=== PATIENT | female | born 1930 | race Caucasian/White ===

== ENCOUNTER → 2016-07-23 | Outpatient (CLI) | payer OTHER ==
[2016-07-23 12:49] LABS: BLOOD UREA NITROGEN 23 mg/dl (7-18); BUN/CREATININE RATIO 23.4 (10-20); CALCIUM 9.1 mg/dl (8.5-10.1); CARBON DIOXIDE 30 mmol/L (21-32); CHLORIDE 105 mmol/L (98-107); GLUCOSE 103 mg/dl (70-99); POTASSIUM 4.4 mmol/L (3.5-5.1); SODIUM 141 mmol/L (136-145)
[2016-07-23 13:02] LABS: ESTIMATED AVERAGE GLUCOSE 117 mg/dl; HA1C FLAG Normal (Normal)
== END | disposition home or self-care (01) ==
LOC: C.LABPVFM 08:45
PROVIDERS: ATTEND Nurse Practitioner
DX: R73.01 Impaired fasting glucose (principal); E03.9 Hypothyroidism, unspecified; I25.10 Atherosclerotic heart disease of native coronary artery without angina pectoris

== ENCOUNTER → 2017-01-22 | Outpatient (CLI) | payer OTHER ==
[2017-01-22 13:50] LABS: BLOOD UREA NITROGEN 20 mg/dl (7-18); BUN/CREATININE RATIO 24.7 (10-20); CALCIUM 9.4 mg/dl (8.5-10.1); CARBON DIOXIDE 28 mmol/L (21-32); CHLORIDE 106 mmol/L (98-107); CREATININE 0.79 mg/dl (0.60-1.20); GLUCOSE 100 mg/dl (70-99); POTASSIUM 4.1 mmol/L (3.5-5.1); SODIUM 139 mmol/L (136-145)
== END | disposition home or self-care (01) ==
LOC: C.LABPVFM 10:12
PROVIDERS: ATTEND Nurse Practitioner
DX: I10 Essential (primary) hypertension (principal)

== ENCOUNTER → 2017-09-05 | Outpatient (CLI) | payer OTHER ==
[2017-09-05 14:19] LABS: BLOOD UREA NITROGEN 24 mg/dl (7-18); CALCIUM 8.9 mg/dl (8.5-10.1); CARBON DIOXIDE 29 mmol/L (21-32); CREATININE 1.14 mg/dl (0.60-1.20); GLUCOSE 105 mg/dl (70-99); POTASSIUM 4.2 mmol/L (3.5-5.1); SODIUM 140 mmol/L (136-145)
== END | disposition home or self-care (01) ==
LOC: C.LABPVFM 09:13
PROVIDERS: ATTEND Nurse Practitioner
DX: I10 Essential (primary) hypertension (principal); E03.9 Hypothyroidism, unspecified

== ENCOUNTER 2022-02-27 18:54 | Observation (INO) ==
[2022-02-27] MEDS ORDERED: SODIUM CHLORIDE 0.9% 1000ML 1,000 ML IV STA (19:59)
--- NOTE | 2022-02-27 19:59 | Emergency Department Note ---
Impression & Plan Syncope and collapse ED Provider Note INFORMANT: Patient and family ED PROVIDER(S): Vik Jerry MD CHIEF COMPLAINT: Syncope PLAN: Disposition: Admitted Condition: Good Outpatient prescription management: none Referral: None MEDICAL DECISION MAKING: Patient presented because of a concerning syncopal episode. No prodrome. Patient denies any prior history of this. States that she was in good health recently. Work-up was initiated. Patient was gently hydrated. Patient had a mild leukocytosis on CBC. No infectious issues were identified on physical examination. Chemistry panel was unremarkable. ECG showed a sinus bradycardia. Head CT did not reveal any acute findings. Urinalysis pending at time of dictation. Consultation was made with Dr. Croft of internal medicine. Patient was evaluated in the ER and admitted for further management Triage Nursing notes reviewed and agree them. Vital Signs: reviewed and remarkable for no significant abnormalities Differential diagnosis: Vasovagal event, dehydration, infection, hypoglycemia, electrolyte abnormalities, cardiac sources, intracerebral event, pulmonary embolism, seizure, toxicologic, neurologic, as well as other pathologies. Diagnostics interpreted by me: ECG: Twelve-lead ECG reveals sinus bradycardia [address] elevation or depression. No PACs or PVCs. Normal axis Cardiac Monitoring: Cardiac monitoring ordered by me: The patient was placed on continuous cardiac monitoring and observed. It revealed a normal sinus rhythm at 60 beats per minute without ectopy or evidence of dysrhythmia. Imaging studies: Head CT: A noncontrast CT scan of the head was performed and was negative for tumor, fracture, intracranial hemorrhage, or other acute pathology. HPI: The patient is a 89 year old female who presents to the Emergency Room with complaints of syncope. This started this afternoon and is described as sudden. Patient that she woke up on the floor. No prodrome.. The patient also notes the following associated symptoms, minor scratch above the bridge of her nose. Patient states has been in good health recently. sHe has been eating well.. The patient has been given no medication for relieving factors. Current pain is rated as 0/10. Patient denies any injury. Pt denies LOC, headache, fevers, chills, diaphoresis, visual changes, neck pain, chest pain, breathing difficulties, nausea, vomiting, abdominal pain, back pain, melena, hematochezia, urinary symptoms, numbness, weakness, lymphadenopathy, rash, or other complaints. ROS: See above HPI for pertinent positives & negatives. A total of 10 systems reviewed and were otherwise negative. PAST MEDICAL HISTORY:See Below , CAD, hypertension PAST SURGICAL HISTORY:See Below, FAMILY HISTORY:See Below SOCIAL HISTORY:See Below, lives alone HOME MEDICATIONS:See Below ALLERGIES:See Below VITALS:See Below PHYSICAL EXAMINATION: GENERAL: Awake, alert, well-appearing, in no distress HENT: Normocephalic, atraumatic except for minor abrasion above the bridge of the nose. Oropharynx unremarkable. EYES: Normal conjunctiva. Sclera non-icteric. NECK: Inspection normal. Non-tender. Supple. No nuchal rigidity. FROM. No masses. RESPIRATORY: Clear to auscultation. No wheezes. No rales. Normal respiratory effort. CARDIAC: Normal rate. Normal rhythm. No murmurs. No rubs. Extremities warm and well perfused. Pulses equal. No JVD. GI: Soft, non-distended. No tenderness to palpation. No rebound or guarding. No masses. RECTAL: Deferred. MUSCULOSKELETAL: Atraumatic. Chest examination reveals no tenderness. The back is symmetrical on inspection without obvious abnormality. There is no CVA t enderness to palpation. No joint edema. LOWER EXTREMITIES: Calves are equal size bilaterally and non-tender. No edema. No discoloration. NEURO: Normal sensorium. No sensory or motor deficits noted. Speech normal. No drift. SKIN: No rash or jaundice noted. Vik Jerry MD Past Med/Surg History Medical History 2-vessel coronary artery disease Carpal tunnel syndrome Changing skin lesion Diverticulosis Hematuria Surgical History No history of previous surgery Family History Mother Myocardial infarction Denies family history of Ovarian cancer Prostate cancer Breast cancer Colorectal cancer Social History Smoking Status: Unknown if ever smoked Second Hand Exposure: No; Hx Alcohol Use: No Hx Substance Use: No Preferred Language: Slovenian Communication Ability: Effective Visual Impairment: Limited Hearing Ability: Normal Coffee Weigher Required: No Beliefs That Will Affect Care: Syn[employer] marital status: / Current Living Situation: Alone current occupational status: retired How many Children do You have: 2 Feels Safe at Home: Yes Childhood Exposure to Second-Hand Smoke: No caffeine: Yes during the past year weight has: remained stable Dental Care, Regularly: No Physical Activity Frequency: Daily Seatbelt Use: always Sunscreen Use: No Do you think of yourself as: straight/heterosexual Gender Identity: Female Assistive Devices: Glasses Allergies Allergies Allergy/AdvReac Type Severity Reaction Status Date / Time No Known Allergies AdvReac Unknown Verified 02/27/22 23:06 Home Meds Home Medications Medication Instructions Recorded Confirmed flaxseed oil 1,000 mg capsule 1,000 mg PO DAILY 02/06/19 02/27/22 aspirin 81 mg tablet,delayed 81 mg PO DAILY 02/27/22 02/27/22 release omega-3 fatty acids 1,000 mg 1,000 mg PO DAILY 02/27/22 02/27/22 capsule Previous Rx's Medication Instructions Recorded atenolol 25 mg tablet 25 mg PO DAILY #90 tabs 09/07/21 lisinopril 5 mg tablet 5 mg PO DAILY #90 tabs 09/07/21 silver sulfadiazine 1 % topical 1 applic topical DAILY PRN wound 09/07/21 cream (Silvadene) healing #20 grams levothyroxine 112 mcg capsule 112 mcg PO DAILY #30 caps 02/09/22 Results & Data (ED) Vital Signs Vital Signs - 24 hr 02/27/22 20:06 02/27/22 20:37 02/27/22 18:55 Pulse Rate 56 L 56 L Pulse Rate [Finger] Respiratory Rate 18 18 Respiratory Effort / Characteristics Respiratory Depth Blood Pressure 126/74 Blood Pressure [Right Arm] Blood Pressure Mean 91 Blood Pressure Mean [Right Arm] Pulse Oximetry 98 98 96 Oxygen Delivery Method Room Air Room Air Room Air Sepsis Recent Fever Within 48 Hours No Sepsis New/Unexplained Change in Mental Status No Sepsis Action Taken by Nursing No Action Required 02/27/22 21:29 02/27/22 23:16 02/28/22 00:43 Pulse Rate Pulse Rate [Finger] 52 L 61 57 L Respiratory Rate 18 20 20 Respiratory Effort / Characteristics Non-Labored Respiratory Depth Normal Blood Pressure Blood Pressure [Right Arm] 140/47 L 117/42 L 124/43 L Blood Pressure Mean Blood Pressure Mean [Right Arm] 78 67 70 Pulse Oximetry 98 97 98 Oxygen Delivery Method Room Air Room Air Room Air Sepsis Recent Fever Within 48 Hours Sepsis New/Unexplained Change in Mental Status Sepsis Action Taken by Nursing 02/28/22 02:44 Pulse Rate Pulse Rate [Finger] 58 L Respiratory Rate 20 Respiratory Effort / Characteristics Respiratory Depth Blood Pressure Blood Pressure [Right Arm] 100/57 L Blood Pressure Mean Blood Pressure Mean [Right Arm] 71 Pulse Oximetry 96 Oxygen Delivery Method Room Air Sepsis Recent Fever Within 48 Hours Sepsis New/Unexplained Change in Mental Status Sepsis Action Taken by Nursing Laboratory Data Result diagrams: 02/27/22 19:57 02/27/22 19:57 Lab Results 02/27/22 02/27/22 02/27/22 Range/Units 19:57 19:57 19:57 WBC 13.53 H (4.8-10.8) K/ul RBC 3.82 L (3.93-5.22) M/uL Hgb 11.2 L (12.0-16.0) g/dl Hct 33.1 L (34.1-44.9) % MCV 86.6 (80.0-100.0) fL MCH 29.3 (25.0-34.0) pg MCHC 33.8 (32.0-36.0) g/dL RDW Std Deviation 48.0 H (36.4-46.3) fL RDW Coeff of Serene 15.0 H (11.5-14.5) % Plt Count 231 (130-400) K/uL MPV 11.6 (9.4-12.3) fL Immature Gran % (Auto) 3.1 % Neut % (Auto) 70.7 % Lymph % (Auto) 17.2 % Jasper % (Auto) 8.9 % Eos % (Auto) 0.0 % Baso % (Auto) 0.1 % Neut # (Auto) 9.56 H (1.4-6.5) K/uL Lymph # (Auto) 2.33 (1.2-3.4) K/uL Jasper # (Auto) 1.20 H (0.24-0.82) K/uL Eos # (Auto) 0.00 (0-0.50) K/uL Baso # (Auto) 0.02 (0-0.2) K/uL Immature Gran # (Auto) 0.42 H (0.00-0.02) K/uL Sodium 132 L (136-145) mmol/L Potassium 5.2 H (3.5-5.1) mmol/L Chloride 102 (98-107) mmol/L Carbon Dioxide 21 (21-32) mmol/L Anion Gap 9 (3-11) BUN 48 H (6-23) mg/dl Creatinine 1.87 H (0.6-1.2) mg/dl Est Cr Clr Drug Dosing Not Reportable Est GFR ( Amer) 27.1 ml/min Est GFR (Non-Af Amer) 23.4 ml/min BUN/Creatinine Ratio 25.7 H (10-20) Glucose 134 H (70-99(Fasting)) mg/dl Calcium 9.0 (8.5-10.1) mg/dl Magnesium 2.2 (1.7-2.4) mg/dl Total Bilirubin 0.4 (0.2-1.0) mg/dl AST 22 (13-39) U/L ALT 10 (7-52) U/L Alkaline Phosphatase 46 (34-104) U/L Troponin I High Sens 9.3 (0-14) pg/ml Total Protein 7.0 (6.0-8.3) gm/dl Albumin 4.5 (3.4-5.0) gm/dl Globulin 2.5 (2.5-4.0) gm/dl Albumin/Globulin Ratio 1.8 (0.9-2) TSH 19.940 H (0.300-4.500) uIu/ml Free T4 0.95 (0.61-1.60) ng/dl SARS-CoV-2, RNA, NAAT (NEGATIVE) 02/27/22 Range/Units 20:20 WBC (4.8-10.8) K/ul RBC (3.93-5.22) M/uL Hgb (12.0-16.0) g/dl Hct (34.1-44.9) % MCV (80.0-100.0) fL MCH (25.0-34.0) pg MCHC (32.0-36.0) g/dL RDW Std Deviation (36.4-46.3) fL RDW Coeff of Serene (11.5-14.5) % Plt Count (130-400) K/uL MPV (9.4-12.3) fL Immature Gran % (Auto) % Neut % (Auto) % Lymph % (Auto) % Jasper % (Auto) % Eos % (Auto) % Baso % (Auto) % Neut # (Auto) (1.4-6.5) K/uL Lymph # (Auto) (1.2-3.4) K/uL Jasper # (Auto) (0.24-0.82) K/uL Eos # (Auto) (0-0.50) K/uL Baso # (Auto) (0-0.2) K/uL Immature Gran # (Auto) (0.00-0.02) K/uL Sodium (136-145) mmol/L Potassium (3.5-5.1) mmol/L Chloride (98-107) mmol/L Carbon Dioxide (21-32) mmol/L Anion Gap (3-11) BUN (6-23) mg/dl Creatinine (0.6-1.2) mg/dl Est Cr Clr Drug Dosing Est GFR ( Amer) ml/min Est GFR (Non-Af Amer) ml/min BUN/Creatinine Ratio (10-20) Glucose (70-99(Fasting)) mg/dl Calcium (8.5-10.1) mg/dl Magnesium (1.7-2.4) mg/dl Total Bilirubin (0.2-1.0) mg/dl AST (13-39) U/L ALT (7-52) U/L Alkaline Phosphatase (34-104) U/L Troponin I High Sens (0-14) pg/ml Total Protein (6.0-8.3) gm/dl Albumin (3.4-5.0) gm/dl Globulin (2.5-4.0) gm/dl Albumin/Globulin Ratio (0.9-2) TSH (0.300-4.500) uIu/ml Free T4 (0.61-1.60) ng/dl SARS-CoV-2, RNA, NAAT NEGATIVE (NEGATIVE) Administered Medications Sodium Chloride (Nss 1000ml) 1,000 mls @ 125 mls/hr IV .Q8H STA Stop: 02/28/22 03:58 Last Admin: 02/27/22 20:37 Dose: 125 mls/hr Documented By: [facility] Imaging Data Radiologist's Impression: Head CT 02/27/22 19:[address] DOSE: 537.48 mGy.cm HISTORY: syncope TECHNIQUE: Multiaxial CT images of the head were performed without the use of intravenous contrast. Automated exposure control was utilized for this study. A dose lowering technique was utilized adhering to the principles of ALARA. Comparison: None. Findings: The paranasal sinuses and mastoid air cells are clear. The calvarium and skull base are intact. There is no mass, hematoma, midline shift, acute infarct. White matter hypodensity is nonspecific but suggestive of microvascular ischemic change. The ventricles and sulci demonstrate mild age-related involutional changes. Impression: No acute intracranial abnormality. ACT 112: Negative or not required by law. Electronically signed by: Branden Fuller M.D. 02/27/2022 9:33 PM Discharge Plan Visit Data Chief Complaint: Dizziness ED Provider: Vik Jerry Discharge Problem: Syncope and collapse Forms Stand Alone Forms: My [facility] Prescriptions Prescriptions: No Action levothyroxine 112 mcg capsule 112 mcg PO DAILY Qty: 30 2RF Rx Instructions: pt aware dose change flaxseed oil 1,000 mg capsule 1,000 mg PO DAILY silver sulfadiazine [Silvadene] 1 % cream 1 applic topical DAILY PRN (Reason: wound healing) Qty: 20 0RF Rx Instructions: apply a 1.5 mm thickness atenolol 25 mg tablet 25 mg PO DAILY Qty: 90 3RF lisinopril 5 mg tablet 5 mg PO DAILY Qty: 90 3RF omega-3 fatty acids 1,000 mg Capsule 1,000 mg PO DAILY aspirin 81 mg Tablet,Delayed Release (Dr/Ec) 81 mg PO DAILY Referrals Referrals: Divina Mackey CRNP [Primary Care Provider] -
[2022-02-27 20:13] LABS: Basophils # (auto) 0.02 K/uL (0-0.2); Basophils % (auto) 0.1 %; Hematocrit (blood only) 33.1 % (34.1-44.9); Hemoglobin 11.2 g/dl (12.0-16.0); Immature Granulocytes # (auto) 0.42 K/uL (0.00-0.02); Immature Granulocytes % (auto) 3.1 %; Lymphocytes # (auto) 2.33 K/uL (1.2-3.4); Lymphocytes % (auto) 17.2 %; Mean Corpuscular Hemoglobin 29.3 pg (25.0-34.0); Mean Corpuscular Hgb Conc 33.8 g/dL (32.0-36.0); Mean Corpuscular Volume 86.6 fL (80.0-100.0); Mean Platelet Volume 11.6 fL (9.4-12.3); Monocytes % (auto) 8.9 %; Neutrophils # (auto) 9.56 K/uL (1.4-6.5); Neutrophils % (auto) 70.7 %; Platelet Count 231 K/uL (130-400); Red Blood Count 3.82 M/uL (3.93-5.22); White Blood Count 13.53 K/ul (4.8-10.8)
[2022-02-27 20:37] LABS: Alanine Aminotransferase 10 U/L (7-52); Albumin Globulin Ratio 1.8 (0.9-2); Albumin Level 4.5 gm/dl (3.4-5.0); Alkaline Phosphatase 46 U/L (34-104); Anion Gap 9 (3-11); Aspartate Aminotransferase 22 U/L (13-39); BUN Creatinine Ratio 25.7 (10-20); Bilirubin,Total 0.4 mg/dl (0.2-1.0); Blood Urea Nitrogen 48 mg/dl (6-23); Carbon Dioxide 21 mmol/L (21-32); Chloride 102 mmol/L (98-107); Est GFR (African American) 27.1 ml/min; Est GFR (Non-African American) 23.4 ml/min; Globulin 2.5 gm/dl (2.5-4.0); Glucose 134 mg/dl (70-99(Fasting)); Magnesium 2.2 mg/dl (1.7-2.4); Potassium 5.2 mmol/L (3.5-5.1); Sodium 132 mmol/L (136-145)
[2022-02-27 20:40] LABS: Troponin I High Sensitivity 9.3 pg/ml (0-14)
[2022-02-27 20:58] LABS: Thyroid Stimulating Hormone 19.94 uIu/ml (0.300-4.500)
[2022-02-27 21:34] LABS: T4 Free Thyroxine 0.95 ng/dl (0.61-1.60)
--- NOTE | 2022-02-27 21:34 | CT Scan Report ---
HEAD CT NONCONTRAST CT DOSE: 537.48 mGy.cm HISTORY: syncope TECHNIQUE: Multiaxial CT images of the head were performed without the use of intravenous contrast. A utomated exposure control was utilized for this study. A dose lowering technique was utilized adheri ng to the principles of ALARA. Comparison: None. Findings: The paranasal sinuses and mastoid air cells are clear. The calvarium and skull base are int act. There is no mass, hematoma, midline shift, acute infarct. White matter hypodensity is nonspecifi c but suggestive of microvascular ischemic change. The ventricles and sulci demonstrate mild age-rela aj involutional changes. Impression: No acute intracranial abnormality. ACT 112: Negative or not required by law. Electronically signed by: Branden Fuller M.D. 02/27/2022 9:33 PM
--- NOTE | 2022-02-28 01:00 | History & Physical Report ---
Date of Service February 28, 2022 Assessment & Plan (1) Syncope and collapse: Plan: 89 y/o female w/ PMHx of CAD, HLD, HTN, hypothyroidism, anemia, probable mild cognitive impairment, and impaired fasting glucose who presents w/ syncopal episode without prodrome today. - description of episode: leading differential would be cardiogenic. has hx of 2 vessel disease. lower suspicion for vasovagal, orthostatic, seizure, or CVA (no focal deficits) - head CT w/o acute findings - check orthostatic vitals - bradycardic: hold home beta anupama. considered conduction pathology. check tickborne studies - monitor on telemetry - check TTE - consult cardiology - consider outpatient cardiac monitoring; defer to cardiology (2) Acute kidney injury superimposed on CKD: Plan: - Cr 1.87, baseline 1.3. - maintenance fluids. follow bmp. (3) Hypertension: Plan: - hold home lisinopril and atenolol (4) Hypothyroidism: Plan: - continue home levothyroxine 112 mcg - TSH 19 noted w/ normal fT4. c/w euthyroid sick syndrome - repeat TSH, fT4 as outpatient in 2 weeks (5) Hyperkalemia: Plan: - hold lisinopril. follow bmp (6) Dyslipidemia: Plan: - not on medications. also has hx of 2 vessel CAD. check lipid panel (7) Leukocytosis: Plan: - most likely reactive - check urine and blood cultures Plan FEN/GI: HH. No IV fluids ppx: scds only for now in setting of acute syncope and possible head injury code: full for now, detailed discussion w/ patient; patient to further discuss w/ family dispo: med tele History of Present Illness Chief Complaint: syncope Primary Care Provider: GIOVANY Smith 89 y/o female w/ PMHx of CAD, HLD, HTN, hypothyroidism, anemia, probable mild cognitive impairment, and impaired fasting glucose who presents w/ syncopal episode without prodrome today. She states it occurred in the early afternoon, but she does not remember the details. She found herself on the ground at approximately 3 PM after the syncopal episode. She was on the ground for some time before she was able to get up. She did not have any symptoms such as headache blurry vision or confusion after the episode. However she did have chest pain. Her son lives 2 houses down. She later called her daughter for assistance. She denies history of any syncopal episodes in the past and denies any personal or family history of seizures. Upon EMS arrival, she did have chest pain that was resolved with nitro. Currently, patient denies any symptoms. She did not have any palpitations at any time. She denies any recent illness and has otherwise been in her usual state of health. ED course: 1L NSS bolus Allergies Allergy/AdvReac Type Severity Reaction Status Date / Time No Known Allergies AdvReac Unknown Verified 02/27/22 23:06 Home Medications Medication Instructions Recorded Confirmed Type flaxseed oil 1,000 mg capsule 1,000 mg PO DAILY 02/06/19 02/27/22 History atenolol 25 mg tablet 25 mg PO DAILY #90 tabs 09/07/21 02/27/22 Rx lisinopril 5 mg tablet 5 mg PO DAILY #90 tabs 09/07/21 02/27/22 Rx silver sulfadiazine 1 % topical 1 applic topical DAILY PRN wound 09/07/21 02/27/22 Rx cream (Silvadene) healing #20 grams levothyroxine 112 mcg capsule 112 mcg PO DAILY #30 caps 02/09/22 02/27/22 Rx aspirin 81 mg tablet,delayed 81 mg PO DAILY 02/27/22 02/27/22 History release omega-3 fatty acids 1,000 mg 1,000 mg PO DAILY 02/27/22 02/27/22 History capsule Past Med/Surg History Medical History 2-vessel coronary artery disease Carpal tunnel syndrome Changing skin lesion Diverticulosis Hematuria Surgical History No history of previous surgery Family History Mother Myocardial infarction Denies family history of Ovarian cancer Prostate cancer Breast cancer Colorectal cancer Social History Smoking Status: Unknown if ever smoked Second Hand Exposure: No; Hx Alcohol Use: No Hx Substance Use: No Preferred Language: Lithuanian Communication Ability: Effective Visual Impairment: Limited Hearing Ability: Normal Flavor Extractor Required: No Beliefs That Will Affect Care: Denominational marital status: / Current Living Situation: Alone current occupational status: retired How many Children do You have: 2 Feels Safe at Home: Yes Childhood Exposure to Second-Hand Smoke: No caffeine: Yes during the past year weight has: remained stable Dental Care, Regularly: No Physical Activity Frequency: Daily Seatbelt Use: always Sunscreen Use: No Do you think of yourself as: straight/heterosexual Gender Identity: Female Assistive Devices: Glasses Review of Systems Review of Systems: All systems reviewed & are unremarkable except as noted in HPI & below Physical Exam Physical Exam: General: Grossly A&O. NAD. Cooperative. HEENT: Atraumatic, normocephalic. EOMI Pulm: CTAB. -wheezes, -rales, -rhonchi. No respiratory distress. Cardiac: RRR, -mrg. Radial pulses intact and symmetrical. Abdominal: Nontender, nondistended, soft. Msk: Moving all extrem. Integ: Small superficial abrasion at nosebridge area. Neuro: No gross deficits. Results & Data Results & Data ([facility]) Vital Signs (Past 12 Hours) Vital Signs Pulse Pulse Resp BP BP Pulse Ox O2 Del Method 02/28/22 00:43 57 L 20 124/43 L 98 Room Air 02/27/22 23:16 61 20 117/42 L 97 Room Air 02/27/22 21:29 52 L 18 140/47 L 98 Room Air 02/27/22 18:55 56 L 18 126/74 96 Room Air 02/27/22 20:37 56 L 18 98 Room Air 02/27/22 20:06 98 Room Air Laboratory Results Cardiac Enzymes 02/27/22 Range/Units 19:57 AST 22 (13-39) U/L Troponin I High Sens 9.3 (0-14) pg/ml CBC 02/27/22 Range/Units 19:57 WBC 13.53 H (4.8-10.8) K/ul RBC 3.82 L (3.93-5.22) M/uL Hgb 11.2 L (12.0-16.0) g/dl Hct 33.1 L (34.1-44.9) % Plt Count 231 (130-400) K/uL Neut # (Auto) 9.56 H (1.4-6.5) K/uL Lymph # (Auto) 2.33 (1.2-3.4) K/uL Reagan # (Auto) 1.20 H (0.24-0.82) K/uL Eos # (Auto) 0.00 (0-0.50) K/uL Baso # (Auto) 0.02 (0-0.2) K/uL Comprehensive Metabolic Panel 02/27/22 Range/Units 19:57 Sodium 132 L (136-145) mmol/L Potassium 5.2 H (3.5-5.1) mmol/L Chloride 102 (98-107) mmol/L Carbon Dioxide 21 (21-32) mmol/L BUN 48 H (6-23) mg/dl Creatinine 1.87 H (0.6-1.2) mg/dl Glucose 134 H (70-99(Fasting)) mg/dl Calcium 9.0 (8.5-10.1) mg/dl AST 22 (13-39) U/L ALT 10 (7-52) U/L Alkaline Phosphatase 46 (34-104) U/L Total Protein 7.0 (6.0-8.3) gm/dl Albumin 4.5 (3.4-5.0) gm/dl Intake and Output 02/27/22 02/27/22 02/28/22 14:59 22:59 06:59 Other: Weight 71.8 kg Weight Measurement Method Built in [facility] Patient Weight 02/28/22 06:59 Weight 71.8 kg Diagnostic Findings Head CT 02/27/22 19:[address] DOSE: 537.48 mGy.cm HISTORY: syncope TECHNIQUE: Multiaxial CT images of the head were performed without the use of intravenous contrast. Automated exposure control was utilized for this study. A dose lowering technique was utilized adhering to the principles of ALARA. Comparison: None. Findings: The paranasal sinuses and mastoid air cells are clear. The calvarium and skull base are intact. There is no mass, hematoma, midline shift, acute infarct. White matter hypodensity is nonspecific but suggestive of microvascular ischemic change. The ventricles and sulci demonstrate mild age-related involutional changes. Impression: No acute intracranial abnormality. ACT 112: Negative or not required by law. Electronically signed by: Branden Fuller M.D. 02/27/2022 9:33 PM Code Status & VTE Plan Code Status full VTE Prophylaxis Plan VTE Prophylaxis will be ordered: Yes Supervising Physician Co-Signing Physician Notes Patient seen and examined, chart reviewed, I agree with the assessment and plan per Dr. De Jesus above. In brief, patient is an 89yo female presenting after syncopal event - has h/o CAD, HTN, HLP. EKG WNL. No recent echo She is resting comfortably on exam, NAD Skin - intact HEENT - no JVD, Neck supple and nontender Heart - +S1/S2, regular, bradycardic Lungs - CTA Abd - +BS, soft, NT/ND Ext - no edema Labs and images reviewed Assessment/Plan: -Tele monitoring -Check echo -Cardiology consultation -Remainder as above Resident Activity Tracking Resident Involvement: Resident Care Provided Care Provided: Adult Hospital Medicine
--- NOTE | 2022-02-28 03:43 | Billing Data ---
Date of Service February 28, 2022 Coding Level of Care Code INT OBSERVATION CARE 70M LVL 3
[2022-02-28] MEDS ORDERED: ACETAMINOPHEN 325 MG TAB PO PRN (04:05)
[2022-02-28 04:35] LABS: Appearance Urine Cloudy (Clear); Bacteria Urine Automated Negative (Negative); Bilirubin Urine Negative (Negative); Blood Urine Negative (Negative); Color Urine Yellow; Epithelial Cell Urine Auto >30 /lpf (0-5); Glucose Urine UA Negative (Negative); Ketones Urine Trace (Negative); Leukocyte Esterase Urine 1+ (Negative); Nitrite Urine Negative (Negative); Protein Urine Negative (Negative); Specific Gravity Urine 1.022 (1.000-1.030); Urobilinogen Urine Negative (Negative)
[2022-02-28 04:51] LABS: Calcium Oxalate Crystals Urine Present (None Prsent); RBC Urine Automated 0-4 /hpf (0-4)
[2022-02-28] MEDS: LEVOTHYROXINE SODIUM 112 MCG TABLET PO SCH (05:36)
[2022-02-28 06:48] LABS: Basophils # (auto) 0.02 K/uL (0-0.2); Basophils % (auto) 0.2 %; Eosinophils # (auto) 0.03 K/uL (0-0.50); Eosinophils % (auto) 0.3 %; Hematocrit (blood only) 31.4 % (34.1-44.9); Hemoglobin 10.6 g/dl (12.0-16.0); Immature Granulocytes # (auto) 0.21 K/uL (0.00-0.02); Immature Granulocytes % (auto) 1.8 %; Lymphocytes # (auto) 2.84 K/uL (1.2-3.4); Lymphocytes % (auto) 24.4 %; Mean Corpuscular Hemoglobin 29.2 pg (25.0-34.0); Mean Corpuscular Hgb Conc 33.8 g/dL (32.0-36.0); Mean Corpuscular Volume 86.5 fL (80.0-100.0); Mean Platelet Volume 11.2 fL (9.4-12.3); Neutrophils # (auto) 7.82 K/uL (1.4-6.5); Neutrophils % (auto) 67.3 %; Platelet Count 213 K/uL (130-400); RDW Standard Deviation 47.9 fL (36.4-46.3); Red Blood Count 3.63 M/uL (3.93-5.22); White Blood Count 11.62 K/ul (4.8-10.8)
[2022-02-28 07:14] LABS: Albumin Globulin Ratio 1.9 (0.9-2); Albumin Level 4.2 gm/dl (3.4-5.0); BUN Creatinine Ratio 29.6 (10-20); Bilirubin,Total 0.6 mg/dl (0.2-1.0); Calcium 8.7 mg/dl (8.5-10.1); Chol HDL Ratio 5.1 (0-5); Creatinine Clr Calc Pharmacy 21.2 ml/min; Est GFR (African American) 32.3 ml/min; Est GFR (Non-African American) 27.9 ml/min; Globulin 2.2 gm/dl (2.5-4.0); Magnesium 2.2 mg/dl (1.7-2.4); Potassium 5.2 mmol/L (3.5-5.1); Total Protein 6.4 gm/dl (6.0-8.3); Troponin I High Sensitivity 8.6 pg/ml (0-14)
[2022-02-28 07:24] LABS: Echinocytes 1+
[2022-02-28 07:36] LABS: Estimated Average Glucose 114 mg/dl; Hemoglobin A1C 5.6 % (4.5-5.6); Lyme Ab IgG w/WB Rflx Negative (Negative)
[2022-02-28 07:37] LABS: Lyme Ab IgM w/WB Rflx Negative (Negative)
[2022-02-28] MEDS ORDERED: PERFLUTREN LIPID MICROSPHERE (DEFINITY) IV ONE (07:38)
[2022-02-28] MEDS: D5W AND NSS 1,000 ML IV SCH ×2 (09:10→21:38)
--- NOTE | 2022-02-28 09:23 | Cardiology Consultation ---
Date of Consultation February 28, 2022 Assessment & Plan (1) Syncope and collapse: (2) Orthostatic hypotension: (3) Sinus bradycardia: (4) Incomplete RBBB: Mrs. Benitez is an 89 year old female with a history of Hypertension, Dyslipidemia, 2 Vessel CAD, Hypothyroidism, and CKD who presented to [facility] ER on 02/27/22 after a Syncopal Episode -- which was most likely related to Orthostatic Hypotension however, with a complete lack of prodromal warning symptoms, presence of sinus bradycardia, and evidence of underlying conduction disease (incomplete RBBB) -- Cardiogenic Syncope needs to be ruled out. Patient was in her usual state of health yesterday and had been standing in her kitchen for a period of time. She then walked into the dining room/living room and apparently collapsed on the floor. The only thing she recalls is waking up on the floor. She was unable to get herself up immediately, so she laid on the floor for about an hour. She was then able to get herself up off the floor and she called her son. She did sustain an abrasion to her forehead but did not sustain any significant injury. Patient did not experience any prodromal warning symptoms -- she denies any sensation of lightheadedness, dizziness, nausea, vomiting, diaphoresis, dyspnea, palpitations, or chest discomfort. She does not know how long she was unconscious and this event was not witnessed. After her syncopal episode she felt a bit weak but otherwise felt normal. Patient has been eating and drinking normally leading up to this event -- no missed meals or decreases in her fluid intake. Her Levothyroxine dose was increased to 112 mcg daily as of 02/09/22 but that was her only recent medication change. Patient denies any prior syncopal episodes or "heart problems" at all. No history of abnormal heart rhythms. In the ER, patient was treated with gentle IVF's. Her EKG showed sinus bradycardia at 56 bpm with an incomplete RBBB. Blood pressure was 126 mmHg systolically. CBC with diff showed a mild leukocytosis. Chemistry panel showed hyperkalemia at 5.2 mmol/L, hyponatremia with a serum sodium of 133 mmol/L. TSH is markedly elevated at 19.940 uIu/mL. Head CT did not reveal any acute findings. Patient's high sensitivity troponin I levels are unremarkable. conveyor monitor showed sinus rhythm with rates in the 50's and low's 60's. No cardiac pauses, ectopy, or arrhythmias. Admission for further evaluation was recommended. Patient continues to receive IVF's. Lisinopril and Atenolol are on hold. Cardiac monitoring overnight reveals NSR at rates in the upper 50's to 60's. Recommend the followin. Continue IV fluids until she has no evidence of orthostasis. 2. Remain off of Lisinopril. 3. Remain off of Atenolol. 4. 30 Cardiac Event Monitor following discharge. If this is unrevealing, consider [employer] LINQ II implantable loop recorder. 5. Follow-up with [facility] [place] [facility]iology in approximately 6 weeks and we will review her cardiac cath lab technologist. 6. Correct hypothyroidism which can cause reduction in heart rate, decreased cardiac output, and increased peripheral vascular resistance. (5) 2-vessel coronary artery disease: She is asymptomatic and her high sensitivity troponin I levels are unremarkable. -- Continue Aspirin 81 mg daily. -- She refuses any statin medications and she no longer monitors her lipid panel due to advanced age and the fact that she will take a statin for it. -- Continue Shafer 3 Fatty Acids 1000 mg daily. -- If she develops any angina after stopping her beta-anupama, would recommend resuming Atenolol at 12.5 mg daily. (6) Hypertension: -- Currently with evidence of orthostatic hypotension. -- Remain off of beta-anupama and ISAI-inhibitor as outlined above. (7) Dyslipidemia: -- Continue Shafer 3 Fatty Acids 1000 mg daily. Supervising Physician Co-Signing Physician Notes ADDENDUM (Dr. Rodrigues): Patient seen and examined. Agree with plan as outlined above by Mr. Yue COPPOLA. Although traumatic syncope certainly raises the possibility of conduction system abnormalities, patient does demonstrate significant orthostasis as well as some degree of chronotropic blunting suggesting that her vasoactive medications may have resulted in cerebral hypoperfusion with syncope. Agree with discontinuing both atenolol and lisinopril, would even allow for some degree of permissive hypertension given the high risk/low reward benefit of treating hypertension at this age in the context of recent syncope. Given benign telemetry (other than mild, likely medication related bradycardia), significant conduction disturbance is less than certain, but given potential consequences of recurrent syncope would agree with MCOT monitor and, possibly loop recorder (depending upon her clinical course). She should remain on telemetry today and overnight, if she is doing well tomorrow she could perhaps be discharged, depending upon degree of home care assistance available. History of Present Illness Reason for Consultation: -- Syncope. Requesting Physician: Jose Gandara MD Attending Physician: Gene Rodrigues MD History of Present Illness Mrs. Benitez is an 89 year old female with a history of Hypertension, Dyslipidemia, 2 Vessel CAD, Hypothyroidism, and CKD who presented to [facility] ER on 02/27/22 after a Syncopal Episode. Patient was in her usual state of health yesterday and had been standing in her kitchen for a period of time. She then walked into the dining room/living room and apparently collapsed on the floor. The only thing she recalls is waking up on the floor. She was unable to get herself up immediately, so she laid on the floor for about an hour. She was then able to get herself up off the floor and she called her son. She did sustain an abrasion to her forehead but did not sustain any significant injury. Patient did not experience any prodromal warning symptoms -- she denies any sensation of lightheadedness, dizziness, nausea, vomiting, diaphoresis, dyspnea, palpitations, or chest discomfort. She does not know how long she was unconscious and this event was not witnessed. After her syncopal episode she felt a bit weak but otherwise felt normal. Patient has been eating and drinking normally leading up to this event -- no missed meals or decreases in her fluid intake. Her Levothyroxine dose was increased to 112 mcg daily as of 02/09/22 but that was her only recent medication change. Patient denies any prior syncopal episodes or "heart problems" at all. No history of abnormal heart rhythms. In the ER, patient was treated with gentle IVF's. Her EKG showed sinus bradycardia at 56 bpm with an incomplete RBBB. Blood pressure was 126 mmHg systolically. CBC with diff showed a mild leukocytosis. Chemistry panel showed hyperkalemia at 5.2 mmol/L, hyponatremia with a serum sodium of 133 mmol/L. TSH is markedly elevated at 19.940 uIu/mL. Head CT did not reveal any acute findings.conveyor monitor showed sinus rhythm with rates in the 50's and low's 60's. No cardiac pauses, ectopy, or arrhythmias. Admission for further evaluation was recommended. Patient continues to receive IVF's. Lisinopril and Atenolol are on hold. Ca rdiac monitoring overnight reveals NSR at rates in the upper 50's to 60's. Patient offers no complaints today and feels that she is at her baseline. She is completely asymptomatic. ECHOCARDIOGRAM 02/28/22: -- Normal LV structure and function. -- LVEF 55% to 60%, normal wall motion. -- Mild concentric LVH. -- Grade I LV diastolic dysfunction. -- RV is mildly to moderately dilated. -- Normal RV systolic function. -- Normal estimated RVSP. -- Mildly dilated left atrium. -- Mild mitral regurgitation. -- Compared to 2006 study; No significant change. Allergies Allergy/AdvReac Type Severity Reaction Status Date / Time No Known Allergies AdvReac Unknown Verified 02/27/22 23:06 Home Medications Medication Instructions Recorded Confirmed Type flaxseed oil 1,000 mg capsule 1,000 mg PO DAILY 02/06/19 02/27/22 History atenolol 25 mg tablet 25 mg PO DAILY #90 tabs 09/07/21 02/27/22 Rx lisinopril 5 mg tablet 5 mg PO DAILY #90 tabs 09/07/21 02/27/22 Rx silver sulfadiazine 1 % topical 1 applic topical DAILY PRN wound 09/07/21 02/27/22 Rx cream (Silvadene) healing #20 grams levothyroxine 112 mcg capsule 112 mcg PO DAILY #30 caps 02/09/22 02/27/22 Rx aspirin 81 mg tablet,delayed 81 mg PO DAILY 02/27/22 02/27/22 History release omega-3 fatty acids 1,000 mg 1,000 mg PO DAILY 02/27/22 02/27/22 History capsule Patient History Medical History 2-vessel coronary artery disease Carpal tunnel syndrome Changing skin lesion Diverticulosis Hematuria Surgical History No history of previous surgery Family History Mother Myocardial infarction Denies family history of Ovarian cancer Prostate cancer Breast cancer Colorectal cancer Social History Smoking Status: Never smoker Second Hand Exposure: No; Hx Alcohol Use: No Hx Substance Use: No Preferred Language: Kazakh Communication Ability: Effective Visual Impairment: Limited Hearing Ability: Normal Special Service Representative Required: No Beliefs That Will Affect Care: None marital status: / Current Living Situation: Alone current occupational status: retired How many Children do You have: 2 Feels Safe at Home: Yes Childhood Exposure to Second-Hand Smoke: No caffeine: Yes during the past year weight has: remained stable Dental Care, Regularly: No Physical Activity Frequency: Daily Seatbelt Use: always Sunscreen Use: No Do you think of yourself as: straight/heterosexual Gender Identity: Female Assistive Devices: Cane, Denture - Upper, Denture - Lower and Glasses Physical Exam Physical Exam: Orthostatic Systolic BP's 93 mmHg lying, 110 mmHg sitting, and drops to 83 mmHg right arm standing. GENERAL: Patient in no acute distress. HEENT: Small abrasion of her forehead is noted. EOM's intact. Facies symmetric. No perioral cyanosis. NECK: No JVD. JVP is not elevated. Carotid upstrokes are + 2 bilaterally without obvious bruits. CHEST/LUNGS: Clear to auscultation throughout all lung barrow. No wheezes, rales, or crackles. CVS: S1 and S2 are regular at 60 bpm with a grade 1/6 systolic murmur at the left sternal border. No diastolic murmurs. No gallops or rubs. PMI is nondisplaced. No lifts, heaves, or thrills. No abdominal aortic or renal bruits. ABDOMINAL EXAM: Bowel sounds are present. No masses, organomegaly, or tenderness. EXTREMITIES: No clubbing or cyanosis. No edema. Intact radial pulses bilaterally. NEUROLOGIC EXAM: Patient is awake, alert, and oriented. Pleasant and cooperative. Answers questions appropriately. Speech is clear. REHABILITATION TECH: -- Sinus rhythm at rates in the upper 50's to 60's. -- No evidence of cardiac pauses, ectopy, or arrhythmias. Results & Data ([facility]) Vital Signs (Past 12 Hours) Vital Signs Temp Pulse Pulse Resp BP Pulse Ox O2 Del Method 02/28/22 08:48 36.6 C 54 L 19 96/56 L 97 Room Air 02/28/22 07:11 56 L 02/28/22 04:47 58 L 02/28/22 04:28 36.6 C 62 16 110/62 96 Room Air 02/28/22 03:48 36.6 C 62 16 110/62 96 Room Air 02/28/22 03:29 66 20 120/51 L 95 Room Air 02/28/22 02:44 58 L 20 100/57 L 96 Room Air 02/28/22 00:43 57 L 20 124/43 L 98 Room Air 02/27/22 23:16 61 20 117/42 L 97 Room Air 02/27/22 21:29 52 L 18 140/47 L 98 Room Air Laboratory Results Laboratory Results - last 24 hr 02/27/22 02/27/22 02/27/22 19:57 19:57 19:57 WBC 13.53 H RBC 3.82 L Hgb 11.2 L Hct 33.1 L MCV 86.6 MCH 29.3 MCHC 33.8 RDW Std Deviation 48.0 H RDW Coeff of Serene 15.0 H Plt Count 231 MPV 11.6 Immature Gran % (Auto) 3.1 Neut % (Auto) 70.7 Lymph % (Auto) 17.2 [place] % (Auto) 8.9 Eos % (Auto) 0.0 Baso % (Auto) 0.1 Neut # (Auto) 9.56 H Lymph # (Auto) 2.33 [place] # (Auto) 1.20 H Eos # (Auto) 0.00 Baso # (Auto) 0.02 Immature Gran # (Auto) 0.42 H Echinocytes Sodium 132 L Potassium 5.2 H Chloride 102 Carbon Dioxide 21 Anion Gap 9 BUN 48 H Creatinine 1.87 H Est Cr Clr Drug Dosing Not Reportable Est GFR ( Amer) 27.1 Est GFR (Non-Af Amer) 23.4 BUN/Creatinine Ratio 25.7 H Glucose 134 H Estimat Average Glucose Hemoglobin A1c Calcium 9.0 Magnesium 2.2 Total Bilirubin 0.4 AST 22 ALT 10 Alkaline Phosphatase 46 Troponin I High Sens 9.3 Total Protein 7.0 Albumin 4.5 Globulin 2.5 Albumin/Globulin Ratio 1.8 Triglycerides Cholesterol LDL Cholesterol, Calc VLDL Cholesterol, Calc HDL Cholesterol Cholesterol/HDL Ratio TSH 19.940 H Free T4 0.95 Free T3 Urine Color Urine Appearance Urine pH Ur Specific [place]rania Urine Protein Urine Glucose (UA) Urine Ketones Urine Blood Urine Nitrite Urine Bilirubin Urine Urobilinogen Ur Leukocyte Esterase Urine WBC (Auto) Urine RBC (Auto) U Hyaline Cast (Auto) U Epithel Cells (Auto) Urine Bacteria (Auto) Calcium Oxalate Crystal Anaplasma Smear Babesia Smear Lyme Disease IgG Ab Lyme Disease IgM Ab SARS-CoV-2, RNA, NAAT 02/27/22 02/28/22 02/28/22 20:20 04:20 05:49 WBC 11.62 H RBC 3.63 L Hgb 10.6 L Hct 31.4 L MCV 86.5 MCH 29.2 MCHC 33.8 RDW Std Deviation 47.9 H RDW Coeff of Serene 15.0 H Plt Count 213 MPV 11.2 Immature Gran % (Auto) 1.8 Neut % (Auto) 67.3 Lymph % (Auto) 24.4 [place] % (Auto) 6.0 Eos % (Auto) 0.3 Baso % (Auto) 0.2 Neut # (Auto) 7.82 H Lymph # (Auto) 2.84 [place] # (Auto) 0.70 Eos # (Auto) 0.03 Baso # (Auto) 0.02 Immature Gran # (Auto) 0.21 H Echinocytes 1+ Sodium Potassium Chloride Carbon Dioxide Anion Gap BUN Creatinine Est Cr Clr Drug Dosing Est GFR ( Amer) Est GFR (Non-Af Amer) BUN/Creatinine Ratio Glucose Estimat Average Glucose Hemoglobin A1c Calcium Magnesium Total Bilirubin AST ALT Alkaline Phosphatase Troponin I High Sens Total Protein Albumin Globulin Albumin/Globulin Ratio Triglycerides Cholesterol LDL Cholesterol, Calc VLDL Cholesterol, Calc HDL Cholesterol Cholesterol/HDL Ratio TSH Free T4 Free T3 Urine Color Yellow Urine Appearance Cloudy A Urine pH 5.0 Ur Specific [place]rania 1.022 Urine Protein Negative Urine Glucose (UA) Negative Urine Ketones Trace H Urine Blood Negative Urine Nitrite Negative Urine Bilirubin Negative Urine Urobilinogen Negative Ur Leukocyte Esterase 1+ H Urine WBC (Auto) 1-5 Urine RBC (Auto) 0-4 U Hyaline Cast (Auto) 10-30 H U Epithel Cells (Auto) >30 H Urine Bacteria (Auto) Negative Calcium Oxalate Crystal Present A Anaplasma Smear See Comment Babesia Smear See Comment Lyme Disease IgG Ab Lyme Disease IgM Ab SARS-CoV-2, RNA, NAAT NEGATIVE 02/28/22 02/28/22 02/28/22 05:49 05:49 05:49 WBC RBC Hgb Hct MCV MCH MCHC RDW Std Deviation RDW Coeff of Serene Plt Count MPV Immature Gran % (Auto) Neut % (Auto) Lymph % (Auto) [place] % (Auto) Eos % (Auto) Baso % (Auto) Neut # (Auto) Lymph # (Auto) [place] # (Auto) Eos # (Auto) Baso # (Auto) Immature Gran # (Auto) Echinocytes Sodium 133 L Potassium 5.2 H Chloride 105 Carbon Dioxide 22 Anion Gap 6 BUN 48 H Creatinine 1.62 H Est Cr Clr Drug Dosing 21.2 Est GFR ( Amer) 32.3 Est GFR (Non-Af Amer) 27.9 BUN/Creatinine Ratio 29.6 H Glucose 86 Estimat Average Glucose 114 Hemoglobin A1c 5.6 Calcium 8.7 Magnesium 2.2 Total Bilirubin 0.6 AST 18 ALT 9 Alkaline Phosphatase 44 Troponin I High Sens 8.6 Total Protein 6.4 Albumin 4.2 Globulin 2.2 L Albumin/Globulin Ratio 1.9 Triglycerides 208 H Cholesterol 180 LDL Cholesterol, Calc 103 VLDL Cholesterol, Calc 42 H HDL Cholesterol 35 Cholesterol/HDL Ratio 5.1 H TSH Free T4 Free T3 Urine Color Urine Appearance Urine pH Ur Specific [place] Urine Protein Urine Glucose (UA) Urine Ketones Urine Blood Urine Nitrite Urine Bilirubin Urine Urobilinogen Ur Leukocyte Esterase Urine WBC (Auto) Urine RBC (Auto) U Hyaline Cast (Auto) U Epithel Cells (Auto) Urine Bacteria (Auto) Calcium Oxalate Crystal Anaplasma Smear Babesia Smear Lyme Disease IgG Ab Negative Lyme Disease IgM Ab Negative SARS-CoV-2, RNA, NAAT 02/28/22 05:49 WBC RBC Hgb Hct MCV MCH MCHC RDW Std Deviation RDW Coeff of Serene Plt Count MPV Immature Gran % (Auto) Neut % (Auto) Lymph % (Auto) [place] % (Auto) Eos % (Auto) Baso % (Auto) Neut # (Auto) Lymph # (Auto) [place] # (Auto) Eos # (Auto) Baso # (Auto) Immature Gran # (Auto) Echinocytes Sodium Potassium Chloride Carbon Dioxide Anion Gap BUN Creatinine Est Cr Clr Drug Dosing Est GFR ( Amer) Est GFR (Non-Af Amer) BUN/Creatinine Ratio Glucose Estimat Average Glucose Hemoglobin A1c Calcium Magnesium Total Bilirubin AST ALT Alkaline Phosphatase Troponin I High Sens Total Protein Albumin Globulin Albumin/Globulin Ratio Triglycerides Cholesterol LDL Cholesterol, Calc VLDL Cholesterol, Calc HDL Cholesterol Cholesterol/HDL Ratio TSH Free T4 Free T3 2.81 Urine Color Urine Appearance Urine pH Ur Specific [place] Urine Protein Urine Glucose (UA) Urine Ketones Urine Blood Urine Nitrite Urine Bilirubin Urine Urobilinogen Ur Leukocyte Esterase Urine WBC (Auto) Urine RBC (Auto) U Hyaline Cast (Auto) U Epithel Cells (Auto) Urine Bacteria (Auto) Calcium Oxalate Crystal Anaplasma Smear Babesia Smear Lyme Disease IgG Ab Lyme Disease IgM Ab SARS-CoV-2, RNA, NAAT Diagnostic Findings CT SCAN HEAD 02/27/22: The paranasal sinuses and mastoid air cells are clear. The calvarium and skull base are intact. There is no mass, hematoma, midline shift, acute infarct. White matter hypodensity is nonspecific but suggestive of microvascular ischemic change. The ventricles and sulci demonstrate mild age-related involutional changes. Impression: -- No acute intracranial abnormality. Medications Administered Medications flaxseed oil 1,000 mg capsule 1,000 mg PO DAILY 02/06/19 [History Confirmed 02/27/22] atenolol 25 mg tablet 25 mg PO DAILY #90 tabs 09/07/21 [Rx Confirmed 02/27/22] lisinopril 5 mg tablet 5 mg PO DAILY #90 tabs 09/07/21 [Rx Confirmed 02/27/22] silver sulfadiazine 1 % topical cream (Silvadene) 1 applic topical DAILY PRN wound healing #20 grams 09/07/21 [Rx Confirmed 02/27/22] levothyroxine 112 mcg capsule 112 mcg PO DAILY #30 caps 02/09/22 [Rx Confirmed 02/27/22] aspirin 81 mg tablet,delayed release 81 mg PO DAILY 02/27/22 [History Confirmed 02/27/22] omega-3 fatty acids 1,000 mg capsule 1,000 mg PO DAILY 02/27/22 [History Confirmed 02/27/22] Home Medications Acetaminophen (Acetaminophen 325 Mg Tab) 650 mg PO Q4H PRN PRN Reason: Pain or Fever Stop: 03/30/22 04:04 Dextrose/Sodium Chloride (D5w And Nss) 1,000 mls @ 80 mls/hr IV .[id number] HERMAN Stop: 03/30/22 08:29 Last Admin: 02/28/22 09:10 Dose: 80 mls/hr Levothyroxine Sodium (Levothyroxine Sodium 112 Mcg Tablet) 112 mcg PO DAILYBB [facility] Stop: 03/30/22 06:29 Last Admin: 02/28/22 05:36 Dose: 112 mcg PG Care Time/CCT Total # of Minutes Spent Total Time Spent with Patient: Total time spent is greater than 50% in coordination of care (as documented) at patient's floor/unit and/or counseling patient:42 [place] [address] Initial Inpt Care Lvl 3 Patient Type New Medical Decision Making High Complexity Diagnoses Syncope and collapse R55 Orthostatic hypotension I95.1 Sinus bradycardia R00.1 Incomplete RBBB I45.10 2-vessel coronary artery disease I25.10 Hypertension I10 Dyslipidemia E78.5 Time Spent (min) 68
--- NOTE | 2022-02-28 09:30 | Electrocardiogram Report ---
Test Reason : Blood Pressure : / mmHG Vent. Rate : 056 BPM Atrial Rate : 056 BPM P-R Int : 146 ms QRS Dur : 110 ms QT Int : 464 ms P-R-T Axes : 097 048 031 degrees QTc Int : 447 ms Poor data quality, interpretation may be adversely affected Sinus bradycardia Incomplete right bundle branch block Borderline ECG When compared with ECG of 14-MAY-2005 21:51, Incomplete right bundle branch block has replaced Right bundle branch block Confirmed by Gene Rodrigues ([id number]) on 02/28/2022 9:29:59 AM Referred By: REFERRED SELF Confirmed By:Gene Rodrigues
--- NOTE | 2022-02-28 09:44 | XCELERA ---
[id number]
[2022-02-28] MEDS ORDERED: SODIUM CHLORIDE 0.9% 1000ML 250 ML IV ONE (12:24)
--- NOTE | 2022-02-28 13:08 | Hospitalist Progress Note ---
Date of Service February 28, 2022 Assessment & Plan (1) Syncope and collapse: Plan: Beta-anupama and lisinopril remain on hold. Cardiology consultation noted. Will obtain 30-day event monitor at discharge. Free T3 level is within normal limits. Continue IV fluids. OT and PT assessments requested. Head CT w/o acute findings. She does have orthostasis. (2) Acute kidney injury superimposed on CKD: Plan: Continue IV fluids. Monitor intake and output. Serial lab studies. (3) Hypertension: Plan: Blood pressure remains low normal off atenolol and lisinopril. Will follow. IV fluids continue. Bolus IV fluids as needed. (4) Hypothyroidism: Plan: Continue current thyroid replacement. Free T3 level is within normal limits. (5) Hyperkalemia: Plan: Lisinopril has been discontinued. Continue IV fluids. Serial lab studies. (6) Dyslipidemia: Plan: She refuses to consider statin therapy. Continue low fat diet. (7) Leukocytosis: Plan: No sign of active infection. We will follow. Most likely reactive Plan Anticipate discharge to home tomorrowMarch 01, with 30-day event monitor and probably off beta-blockers and lisinopril indefinitely. Admission and Anticipated Discharge Date Admission Date: February 28, 2022 Subjective Alert and oriented. Pleasant. Cardiology entry noted. Atenolol and lisinopril are on hold. Heart rate currently is only mildly bradycardic. Creatinine improved to 1.6. Potassium remains mildly elevated at 5.2. This should gradually decreased to normal levels since lisinopril has been discontinued. Free T3 level is normal. Continue IV fluids. OT and PT assessments requested. Hopefully she will be able to go home tomorrow, March 01 Review of Systems Review of Systems: Constitutional-no fever or chills ENT-no blurred vision, no double vision, no epistaxis, no sore throat Respiratory-no cough, no wheezing, no shortness of breath Cardiac-no palpitations, no chest pain, no syncope GI-no nausea, vomiting, diarrhea, melena, hematochezia -no urinary retention, no urinary incontinence, no dysuria, no hematuria Musculoskeletal-no joint pain, no muscle tenderness Skin-no bruising, no rashes, no pruritus Neuro-no isolated weakness, no paresthesia, no weakness Psych-no depression, no anxiety Physical Exam Physical Exam: General-alert and oriented x3, no fevers, no chills HEENT-head atraumatic and normocephalic, pupils equal and reactive to light, extraocular muscles intact Neck-no lymphadenopathy or thyromegaly, trachea midline Chest-clear to auscultation percussion. No rales wheezing or rhonchi Cardiac-mildly bradycardic regular rhythm. Normal S1 and S2 Abdomen-normal bowel sounds, nontender, no hepatosplenomegaly Extremities-no cyanosis, clubbing, or edema Neuro-cranial nerves II through XII intact, motor and sensory function within normal limits, strength symmetrical , no focal deficits Psych-normal affect, normal mood Results & Data Results & Data ([facility]) Vital Signs (Past 12 Hours) Vital Signs Temp Pulse Pulse Resp BP Pulse Ox O2 Del Method 02/28/22 11:50 37.0 C 65 17 85/44 L 95 Room Air 02/28/22 08:48 36.6 C 54 L 19 96/56 L 97 Room Air 02/28/22 07:11 56 L 02/28/22 04:47 58 L 02/28/22 04:28 36.6 C 62 16 110/62 96 Room Air 02/28/22 03:48 36.6 C 62 16 110/62 96 Room Air 02/28/22 03:29 66 20 120/51 L 95 Room Air 02/28/22 02:44 58 L 20 100/57 L 96 Room Air Laboratory Results 02/28/22 05:49 02/28/22 05:49 PG Care Time/CCT Total # of Minutes Spent Total Time Spent with Patient: Total time spent is greater than 50% in coordination of care (as documented) at patient's floor/unit and/or counseling patient: Coding Level of Care Code 37297 Subseq Hosp Care Lvl 3 Diagnoses Syncope and collapse R55 Acute kidney injury superimposed on CKD N17.9; N18.9 Hypertension I10 Hypothyroidism E03.9 Hyperkalemia E87.5 Dyslipidemia E78.5 Leukocytosis D72.829
[2022-03-01] MEDS: LEVOTHYROXINE SODIUM 112 MCG TABLET PO SCH (05:49)
[2022-03-01 07:05] LABS: Basophils # (auto) 0.03 K/uL (0-0.2); Basophils % (auto) 0.4 %; Eosinophils # (auto) 0.04 K/uL (0-0.50); Eosinophils % (auto) 0.5 %; Hematocrit (blood only) 28.2 % (34.1-44.9); Hemoglobin 9.5 g/dl (12.0-16.0); Immature Granulocytes % (auto) 1.3 %; Lymphocytes # (auto) 2.49 K/uL (1.2-3.4); Lymphocytes % (auto) 33.1 %; Mean Corpuscular Hemoglobin 29.1 pg (25.0-34.0); Mean Corpuscular Hgb Conc 33.7 g/dL (32.0-36.0); Mean Corpuscular Volume 86.5 fL (80.0-100.0); Mean Platelet Volume 11.3 fL (9.4-12.3); Monocytes # (auto) 0.72 K/uL (0.24-0.82); Monocytes % (auto) 9.6 %; Neutrophils # (auto) 4.14 K/uL (1.4-6.5); Neutrophils % (auto) 55.1 %; Platelet Count 173 K/uL (130-400); RDW Standard Deviation 47.8 fL (36.4-46.3); Red Blood Count 3.26 M/uL (3.93-5.22); White Blood Count 7.52 K/ul (4.8-10.8)
[2022-03-01 07:29] LABS: BUN Creatinine Ratio 26.2 (10-20); Calcium 8.3 mg/dl (8.5-10.1); Creatinine Clr Calc Pharmacy 26.4 ml/min; Est GFR (African American) 42.1 ml/min; Est GFR (Non-African American) 36.3 ml/min; Potassium 4.4 mmol/L (3.5-5.1)
--- NOTE | 2022-03-01 09:37 | Discharge Summary ---
Date of Service March 01, 2022 Admission HPI Per Admitting Provider 89 y/o female w/ PMHx of CAD, HLD, HTN, hypothyroidism, anemia, probable mild cognitive impairment, and impaired fasting glucose who presents w/ syncopal episode without prodrome today. She states it occurred in the early afternoon, but she does not remember the details. She found herself on the ground at approximately 3 PM after the syncopal episode. She was on the ground for some time before she was able to get up. She did not have any symptoms such as headache blurry vision or confusion after the episode. However she did have chest pain. Her son lives 2 houses down. She later called her daughter for assistance. She denies history of any syncopal episodes in the past and denies any personal or family history of seizures. Upon EMS arrival, she did have chest pain that was resolved with nitro. Currently, patient denies any symptoms. She did not have any palpitations at any time. She denies any recent illness and has otherwise been in her usual state of health. ED course: 1L NSS bolus Principal Diagnosis Syncope, sinus bradycardia, hyperkalemia, acute on chronic kidney disease Discharge Exam General-alert and oriented x3, no fevers, no chills HEENT-head atraumatic and normocephalic, pupils equal and reactive to light, extraocular muscles intact Neck-no lymphadenopathy or thyromegaly, trachea midline Chest-clear to auscultation percussion. No rales wheezing or rhonchi Cardiac- regular rhythm. Normal S1 and S2 Abdomen-normal bowel sounds, nontender, no hepatosplenomegaly Extremities-no cyanosis, clubbing, or edema Neuro-cranial nerves II through XII intact, motor and sensory function within normal limits, strength symmetrical , no focal deficits Psych-normal affect, normal mood Discharge Data Allergies Allergy/AdvReac Type Severity Reaction Status Date / Time No Known Allergies AdvReac Unknown Verified 02/27/22 23:06 Consultations 02/28/22 04:05 Consult Cardiology Routine Ordered Studies 02/27/22 19:45 CT head/brain wo con Stat Hospital Course (1) Syncope and collapse: Beta-anupama and lisinopril have been stopped. Blood pressure and heart rate are now acceptable. Cardiology consultation noted. Will obtain 30-day event monitor at discharge. Free T3 level is within normal limits. IV fluids can now be discontinued. Head CT w/o acute findings. Orthostasis resolved. (2) Acute kidney injury superimposed on CKD: Resolved with IV fluids. Monitor intake and output. Serial lab studies. (3) Hypertension: Blood pressure satisfactory off atenolol and lisinopril. Will follow. Treated with IV fluids (4) Hypothyroidism: Continue current thyroid replacement. Free T3 level is within normal limits. (5) Hyperkalemia: Lisinopril has been discontinued. Now resolved. (6) Dyslipidemia: She refuses to consider statin therapy. Continue low fat diet. (7) Leukocytosis: No sign of active infection. We will follow. Most likely reactive Plan Discharge to home today, March 01, with 30-day event monitor and off beta- blockers and lisinopril indefinitely. Total Time Total Time Spent Total Time Spent (In Minutes): 35 minutes Discharge Plan Discharge Items Patient Disposition: Home - Self-Care Reason For Visit: SYNCOPAL EPISODE Discharge Diagnosis: Syncope, sinus bradycardia, hyperkalemia, acute on chronic kidney disease Activity: Resume your previous activity Non-emergency contact: Primary Care Provider Call non-emergency contact if: you have any medication questions Follow-up/Referrals: Divina Mackey CRNP [Primary Care Provider] - Diet: Heart Healthy Addtl Attending Provider Instructions: Atenolol and lisinopril have been discontinued indefinitely Pending Studies at Discharge: No Stand-Alone Forms: My [facility] [employer], Smoking Cessation Medications and DC Order Prescriptions: Continued levothyroxine 112 mcg capsule 112 mcg PO DAILY Qty: 30 2RF Rx Instructions: pt aware dose change flaxseed oil 1,000 mg capsule 1,000 mg PO DAILY silver sulfadiazine [Silvadene] 1 % cream 1 applic topical DAILY PRN (Reason: wound healing) Qty: 20 0RF Rx Instructions: apply a 1.5 mm thickness omega-3 fatty acids 1,000 mg Capsule 1,000 mg PO DAILY aspirin 81 mg Tablet,Delayed Release (Dr/Ec) 81 mg PO DAILY Discontinued atenolol 25 mg tablet 25 mg PO DAILY Qty: 90 3RF lisinopril 5 mg tablet 5 mg PO DAILY Qty: 90 3RF Discharge Orders: Discharge Order (Routine); Ordered 03/01/22 Ordered By: Jose Gandara Admission Data Admit Date/Time: 02/28/22 01:58 Attending Provider: Jose Gandara Admit Provider: Johann De Jesus Primary Care Provider: Divina Mackey Other Providers: Mauro Montiel Coding Level of Care Code D/C DAY MANAGEMENT >30 MINS Diagnoses Syncope and collapse R55 Acute kidney injury superimposed on CKD N17.9; N18.9 Hypertension I10 Hypothyroidism E03.9 Hyperkalemia E87.5 Dyslipidemia E78.5 Leukocytosis D72.829
--- NOTE | 2022-03-01 11:56 | Cardiology Progress Note ---
Date of Service March 01, 2022 Assessment & Plan (1) Syncope and collapse: (2) Orthostatic hypotension: (3) Sinus bradycardia: (4) Hypertension: Plan As noted, suspect her syncope was due to orthostatic hypotension from vasoactive medications (atenolol and lisinopril). Would remain off both these medications and even allow some degree of permissive hypertension given her advanced age and the unfavorable risk/benefit ratio of aggressively treating hypertension in the context of prior orthostasis. Telemetry was benign, doubt rhythm disturbance, but given mildly traumatic syncope would be reasonable to obtain MCOT monitor for the next 2 to 4 weeks to further exclude the possibility of intermittent conduction system abnormality. She looks and feels well today, okay for discharge. I can see her in follow-up in the [facility] office and 4 to 6 weeks (after her MCOT monitor completes), will arrange this. Admission and Anticipated Discharge Date Admission Date: February 28, 2022 Subjective Uneventful night. Patient feels well. No chest pain or dyspnea or other complaints. Telemetry showed sinus rhythm in the 70 to 80 bpm range without pauses or dysrhythmia. Physical Exam Physical Exam: No distress. Normotensive. Pulse 65 bpm and regular. Skin: no ecchymoses or generalized lesions. HEENT: unremarkable. Neck: no JVD or carotid bruits. Lungs: clear. Cardiac: regular rhythm, normal S1 and S2, no obvious murmur or gallop. Abdomen: benign. Extremities: no edema, pulses intact. Neurologic: normal affect, nonfocal. Results & Data ([facility]) Vital Signs (Past 12 Hours) Vital Signs Temp Pulse Pulse Resp BP Pulse Ox O2 Del Method 03/01/22 10:07 98.1 F 65 17 124/63 98 03/01/22 09:46 98.1 F 65 17 124/63 98 Room Air 03/01/22 07:10 59 L 03/01/22 04:00 97.7 F 74 18 136/56 L 97 Room Air Laboratory Results Normal electrolytes, BUN 34 with creatinine 1.3 (48 and 1.62 yesterday). Diagnostic Findings Echocardiogram showed EF 55 to 60% with mild LVH and mild MR. Normal RV systolic pressure. PG Care Time/CCT Total # of Minutes Spent Total Time Spent with Patient: Total time spent is greater than 50% in coordination of care (as documented) at patient's floor/unit and/or counseling patient: Coding Level of Care Code 70556 Subseq Hosp Care Lvl 3 Diagnoses Syncope and collapse R55 Orthostatic hypotension I95.1 Sinus bradycardia R00.1 Hypertension I10
== END 2022-03-01 12:30 | disposition home or self-care (01) ==
LOC: 2N 18:54 → ED 18:54 → SUATTDRO 02-28 01:58 → 2N 02-28 03:36
DX: I12.9 Hypertensive chronic kidney disease with stage 1 through stage 4 chronic kidney disease, or unspecified chronic kidney disease; D72.829 Elevated white blood cell count, unspecified; E87.5 Hyperkalemia; R55 Syncope and collapse; Z79.899 Other long term (current) drug therapy; E78.5 Hyperlipidemia, unspecified; Z79.82 Long term (current) use of aspirin; N17.9 Acute kidney failure, unspecified; N18.9 Chronic kidney disease, unspecified; E03.9 Hypothyroidism, unspecified